=== PATIENT | male | born 1965 | race African-American/Black ===

== ENCOUNTER 2018-05-05 12:51 | Outpatient (CLI) | payer OTHER ==
[2018-05-05 13:34] LABS: BASOPHILS # (AUTO) 0.1 K/uL (0.00-0.22); BASOPHILS % (AUTO) 0.7 % (0.0-2.0); EOSINOPHILS # (AUTO) 0.2 K/uL (0-0.4); EOSINOPHILS % (AUTO) 2.6 % (0.0-4.0); HEMATOCRIT 39.1 % (36-52); HEMOGLOBIN 13.1 g/dL (12.0-18.0); LYMPHOCYTES # (AUTO) 1.6 K/uL (2.0-11.5); LYMPHOCYTES % (AUTO) 21.6 % (20.5-51.1); MEAN CORPUSCULAR HEMOGLOBIN 30 pg (27-31); MEAN CORPUSCULAR HGB CONC 34 g/dL (33-37); MONOCYTES # (AUTO) 0.7 K/uL (0.8-1.0); NEUTROPHILS # (AUTO) 4.9 K/uL (1.8-7.7); NEUTROPHILS % (AUTO) 66.1 % (42.2-75.2); PLATELET COUNT (AUTO) 244 K/uL (140-450); RED BLOOD CELL COUNT(AUTO) 4.35 MIL/uL (4.20-6.10); RED CELL DISTRIBUTION WIDTH 13.5 % (11.6-13.7); WHITE BLOOD COUNT (AUTO) 7.3 K/uL (4.8-10.8)
[2018-05-05 15:04] LABS: ANION GAP 13.3 (8-16); CARBON DIOXIDE 25.8 mmol/L (21-32); CHOL/HDL RATIO 2.9 (1-4.5); CREATININE 1.7 mg/dL (0.7-1.3); POTASSIUM 4.1 mmol/L (3.5-5.1); THYROID STIMULATING HORMONE 0.75 uIU/mL (0.34-3.74); TOTAL BILIRUBIN 0.3 mg/dL (0.0-1.0)
[2018-05-06 09:06] LABS: MICROALBUMIN, UR RANDOM 32.1 ug/mL (Not Estab.)
== END 2018-05-05 21:35 | disposition home or self-care (01) ==
LOC: MLB 12:51
PROVIDERS: ATTEND Internal Medicine Geriatric Medicine
DX: E78.5 Hyperlipidemia, unspecified (principal); E11.9 Type 2 diabetes mellitus without complications; I11.9 Hypertensive heart disease without heart failure
CPT/HCPCS: 36415; 80053; 82043; 82306; 83036; 84154; 84443; 85025

== ENCOUNTER 2018-09-22 10:43 | Outpatient (CLI) | payer OTHER ==
[2018-09-22 11:39] LABS: ANION GAP 16.6 (8-16); POTASSIUM 4.6 mmol/L (3.5-5.1)
[2018-09-23 12:11] LABS: MICROALBUMIN, UR RANDOM 53.8 ug/mL (Not Estab.)
== END 2018-09-22 21:09 | disposition home or self-care (01) ==
LOC: MLB 10:43
PROVIDERS: ATTEND Internal Medicine Geriatric Medicine
DX: N18.3 Chronic kidney disease, stage 3 (moderate) (principal); R80.9 Proteinuria, unspecified
CPT/HCPCS: 36415; 80048; 82043; 83036

== ENCOUNTER 2019-01-09 09:34 | Outpatient (CLI) | payer OTHER ==
[2019-01-09 10:39] LABS: ALBUMIN 3.7 g/dL (3.4-5.0); ANION GAP 16.4 (8-16); CREATININE 1.7 mg/dL (0.7-1.3); FREE T4 (FREE THYROXINE) 0.92 ng/dL (0.76-1.46); POTASSIUM 4.4 mmol/L (3.5-5.1); THYROID STIMULATING HORMONE 0.82 uIU/mL (0.34-3.74); TOTAL BILIRUBIN 0.3 mg/dL (0.0-1.0)
== END 2019-01-09 20:10 | disposition home or self-care (01) ==
LOC: MLB 09:34
PROVIDERS: ATTEND Internal Medicine Geriatric Medicine
DX: E11.9 Type 2 diabetes mellitus without complications (principal)
CPT/HCPCS: 36415; 80053; 82330; 84439; 84443; 84480; 86376